=== PATIENT | male | born 1995 | race African-American/Black ===

== ENCOUNTER 2020-06-11 19:10 | Emergency (ER) | payer BC, OTHER, SELFPAY | END 2020-06-11 19:58 | disposition home or self-care (01) | LOC: ERS 19:10 | DX: M62.830 Muscle spasm of back (principal); V89.2XXA Person injured in unspecified motor-vehicle accident, traffic, initial encounter | CPT/HCPCS: 99283 ==

== ENCOUNTER 2023-05-15 23:41 | Emergency (ER) | payer SELFPAY ==
[2023-05-16] MEDS ORDERED: Ketorolac Tromethamine 30 MG/ML VIAL ONE (00:27)
== END 2023-05-16 00:51 | disposition home or self-care (01) ==
LOC: ERS 23:41
DX: H66.93 Otitis media, unspecified, bilateral (principal)
CPT/HCPCS: 96372; 99282; J1885